=== PATIENT | male | born 1955 | race Caucasian/White ===

== ENCOUNTER → 2016-09-27 | Outpatient (CLI) | payer OTHER ==
--- NOTE | 2016-09-29 10:35 | PE ---
Nuclear medicine PET/CT HISTORY: Lung carcinoma Patient received 10.8 mCi F-18 FDG intravenously and delayed scanning performed from the skull base t o the mid thighs. Localization and attenuation correction CT scan was performed. 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 There is associated hypermetabolic uptake, SUV is 15-25. Thickening of the distal esophagus is noted. There is a lung nodule in the right lower lobe measuring approximat adam 6 to 7 mm in size. Peripherally there is an oval area of density on axial image 87 in the mid rig ht lung with mild hypermetabolic uptake measuring 11 mm, SUV 1.5 Right upper lobe lung nodule is pres ent measuring 8 to 9 mm with some mild associated hypermetabolic uptake SUV 1.8, the interstitium is increased. Left lower lobe nodular density on axial image 80 is present measuring 6 to 7 mm. Only mil d hypermetabolic uptake in the left axilla, SUV 2.8. Subpleural left lower lobe lung nodule on axial image 94 measures 12 mm shows no significant hypermetabolic uptake. Left lower lobe nodule in the cos tophrenic sulcus measures 11 mm. Abdomen pelvis: Left adrenal mass measures approximately 3.7 cm in greatest dimension and has grown i n the interval, SUV is 18-19. There is a gallstone present. No retroperitoneal adenopathy. Osseous structures: Some generalized increased marrow uptake is noted possibly due to treatment. No s uspicious mass. 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
== END | disposition home or self-care (01) ==
LOC: RADPETMAIN 12:01
PROVIDERS: ATTEND Internal Medicine Medical Oncology
DX: C34.90 Malignant neoplasm of unspecified part of unspecified bronchus or lung (principal)
CPT/HCPCS: 78815; A9552